=== PATIENT | female | born 1970 | race Hispanic/Latino ===

== ENCOUNTER 2022-06-15 07:38 | Outpatient (CLI) | payer OTHER | END 2022-06-15 07:39 | disposition home or self-care (01) | LOC: BICMAMMO 07:38 | PROVIDERS: ATTEND Nurse Practitioner Family | DX: N64.89 Other specified disorders of breast (principal); N63.20 Unspecified lump in the left breast, unspecified quadrant | CPT/HCPCS: G0279 ==

== ENCOUNTER 2022-12-07 07:40 | Outpatient (CLI) | payer OTHER | END 2022-12-07 07:41 | disposition home or self-care (01) | LOC: BICMAMMO 07:40 | PROVIDERS: ATTEND Nurse Practitioner Family | DX: R92.8 Other abnormal and inconclusive findings on diagnostic imaging of breast (principal); N63.21 Unspecified lump in the left breast, upper outer quadrant | CPT/HCPCS: G0279 ==

== ENCOUNTER 2024-02-21 08:24 | Outpatient (CLI) | payer OTHER | END 2024-02-21 08:25 | disposition home or self-care (01) | LOC: BICMAMMO 08:24 | PROVIDERS: ATTEND Family Medicine | DX: N63.25 Unspecified lump in the left breast, overlapping quadrants (principal) | CPT/HCPCS: G0279 ==